=== PATIENT | male | born 1980 | race African-American/Black ===

== ENCOUNTER 2017-06-11 16:48 | Emergency (ER) | payer MEDICAID ==
[~2017-06-11] VITALS: Ht 182.9 cm; Wt 69.4 kg
[2017-06-11 16:53] VITALS: BP 125/77
[2017-06-11] MEDS ORDERED: BACITRACIN ZINC OINT 500U/GM, 0.9 GM ONE (17:17)
[2017-06-11] MEDS ORDERED: PROPARACAINE OPHTH 0.5%, 15ML ONE (17:26)
[2017-06-11] MEDS ORDERED: DIPH,PERTUSS(ACELL),TET VAC/PF 0.5 ML IM-VACC ONE ×3 (17:27→18:00)
[2017-06-11] MEDS ORDERED: LIDOCAINE 1%, 10ML SQ ONE (17:30)
[2017-06-11] MEDS ORDERED: PROPARACAINE OPHTH 0.5%, 15ML EACHEYE ONE (18:00)
[2017-06-11] MEDS ORDERED: HYDROcodone/APAP 5/325 TABLET PO ONE (19:00)
[2017-06-11] MEDS ORDERED: HYDROcodone/APAP 5/325 TABLET ONE (19:00)
[2017-06-11] MEDS ORDERED: IBUPROFEN 200 MG TABLET PO ONE (19:00)
[2017-06-11] MEDS ORDERED: IBUPROFEN 200 MG TABLET ONE (19:01)
== END 2017-06-11 19:00 | disposition home or self-care (01) ==
LOC: ED 18:00
DX: S01.111A Laceration without foreign body of right eyelid and periocular area, initial encounter (principal); X58.XXXA Exposure to other specified factors, initial encounter; Y93.89 Activity, other specified; Y99.8 Other external cause status; Y92.009 Unspecified place in unspecified non-institutional (private) residence as the place of occurrence of the external cause
CPT/HCPCS: 12011; 90471; 90715

== ENCOUNTER 2017-06-14 17:25 | Emergency (ER) | payer MEDICAID ==
[~2017-06-14] VITALS: Ht 182.9 cm; Wt 71.0 kg
[2017-06-14 17:41] VITALS: BP 116/74
== END 2017-06-14 18:37 | disposition home or self-care (01) ==
LOC: ED 18:31
DX: S01.111D Laceration without foreign body of right eyelid and periocular area, subsequent encounter (principal); X58.XXXD Exposure to other specified factors, subsequent encounter
CPT/HCPCS: 99281

== ENCOUNTER 2017-06-18 11:53 | Emergency (ER) | payer MEDICAID ==
[~2017-06-18] VITALS: Ht 182.9 cm; Wt 69.6 kg
[2017-06-18 11:59] VITALS: BP 115/68
== END 2017-06-18 12:52 | disposition home or self-care (01) ==
LOC: ED 12:40
DX: Z48.02 Encounter for removal of sutures (principal)
CPT/HCPCS: 99281

== ENCOUNTER 2018-02-16 02:44 | Emergency (ER) | payer MEDICAID, OTHER ==
[~2018-02-16] VITALS: Ht 182.9 cm; Wt 73.0 kg
[2018-02-16 02:47] VITALS: BP 130/87
[2018-02-16] MEDS ORDERED: HYDROcodone/APAP 5/325 TABLET PO STA (03:40)
[2018-02-16] MEDS ORDERED: HYDROcodone/APAP 5/325 TABLET ONE (03:42)
[2018-02-16] MEDS ORDERED: KETOROLAC 30 MG/1 ML ONE (03:42)
[2018-02-16] MEDS ORDERED: KETOROLAC 60 MG/2 ML IM ONE (04:00)
== END 2018-02-16 04:46 | disposition home or self-care (01) ==
LOC: ED 04:43
DX: S92.424A Nondisplaced fracture of distal phalanx of right great toe, initial encounter for closed fracture (principal); F17.210 Nicotine dependence, cigarettes, uncomplicated; X58.XXXA Exposure to other specified factors, initial encounter; Y93.89 Activity, other specified; Y99.8 Other external cause status; Y92.89 Other specified places as the place of occurrence of the external cause
CPT/HCPCS: 29515; 73630; 96372; 99284; J1885